=== PATIENT | female | born 1990 | race Caucasian/White ===

== ENCOUNTER 2017-08-02 00:29 | Emergency (ER) | payer SELFPAY ==
[2017-08-02 00:35] VITALS: BP 123/76
--- NOTE | 2017-08-02 01:06 | EDPHY ---
H & P Smoking Status: Current every day smoker Time Seen by Provider: 08/02/17 00:46 HPI/ROS: CHIEF COMPLAINT: Right otalgia HISTORY OF PRESENT ILLNESS: 26-year-old female history of recurrent otitis media complaining of right otalgia since this evening. She has been experiencing antecedent URI symptoms for the past few days. No otorrhea. No hearing loss. No barotrauma. No chest pain. No abdominal pain. No cough. REVIEW OF SYSTEMS: A ten point review of systems was performed and is negative with the exception of the items mentioned in the HPI PAST MEDICAL & SURGICAL HISTORY: recurrent otitis media SOCIAL HISTORY: Nonsmoker PHYSICAL EXAM (Prior to examination, patient consented to physical exam, hands were washed and my usual and customary physical exam procedures followed) 1) GENERAL: Well-developed, well-nourished, alert and oriented. Appears to be in no acute distress. 2) HEAD: Normocephalic, atraumatic 3) HEENT: Pupils equal, round, reactive to light bilaterally. Sclera anicteric. Nasopharynx, oropharynx, clear, no lesions. Left ear: Nonbulging non erythematous tympanic membrane with no signs. Right ear: Bulging erythematous tympanic membrane with no signs of perforation 4) NECK: Full range of motion, no meningeal signs. 5) LUNGS: Clear auscultation bilaterally, no wheezes, no rhonchi, no retractions. 6) HEART: Regular rate and rhythm, no murmur, no heave, no gallop. 7) ABDOMEN: No guarding, no rebound, no focal tenderness, 8) MUSCULOSKELETAL: No peripheral edema or discoloration. 9) BACK: No visual or palpable abnormality. 10) SKIN: No rash, no petechiae. 11) Psychiatric: Patient is oriented X 3, there is no agitation. DIFFERENTIAL DIAGNOSIS: in no particular order including but not limited to otitis media, otitis externa, mastoiditis (Mahendra,Louise Rebecca) Constitutional: Initial Vital Signs Temperature (C) 36.7 C 08/02/17 00:32 Heart Rate 88 08/02/17 00:32 Respiratory Rate 18 08/02/17 00:32 Blood Pressure 123/76 H 08/02/17 00:32 O2 Sat (%) 97 08/02/17 00:32 O2 Delivery Mode Room Air Allergies/Adverse Reactions: No Known Allergies Allergy (Unverified 08/02/17 00:32) Home Medications: Medication Instructions Recorded Amoxicillin Trihydrate 500 mg PO Q8 7 Days cap 08/02/17 [Amoxicillin 500mg cap] MDM/Departure - MDM Medications Given: Discontinued Medications Hydrocodone Bitart/Acetaminophen ([place] 5/325mg Prepack#6) 1 btl TAKEHOME EDNOW ONE Stop: 08/02/17 01:25 Last Admin: 08/02/17 01:30 Dose: 1 btl Amoxicillin (Amoxil Chewable 250 Mg Prepack#4) 1 btl TAKEHOME EDNOW ONE PRN Reason: Protocol Stop: 08/02/17 01:08 Last Admin: 08/02/17 01:19 Dose: 1 btl Lidocaine HCl (Lidocaine Hcl 4% Topical Solution) 1 ml TP EDNOW ONE Stop: 08/02/17 01:24 Last Admin: 08/02/17 01:26 Dose: 1 ml ED Course/Re-evaluation: Care of patient under supervision of secondary supervising physician Dr Mitchell . (Louise Mccray) PHYSICIAN DOCUMENTATION: The patient was evaluated and managed by the Physician Admissions Officer. My co- signature indicates that I have reviewed this chart and I agree with the findings and plan of care as documented. I am the secondary supervising physician. (Rama Mitchell) - Depart Disposition: Home, Routine, Self-Care Clinical Impression: Right otitis media Qualifiers: Otitis media type: suppurative Chronicity: acute Recurrence: recurrent Spontaneous tympanic membrane rupture: without spontaneous rupture Qualified Code(s): H66.004 - Acute suppurative otitis media without spontaneous rupture of ear drum, recurrent, right ear Condition: Good Instructions: Hydrocodone/Acetaminophen (By mouth), Amoxicillin (By mouth), Serous Otitis Media (ED) Additional Instructions: Return to the emergency department immediately for change in breathing habits, change in voice, change in swallowing habits, change in mental status, or any other symptoms that concern you. Prescriptions: Amoxicillin Trihydrate [Amoxicillin 500mg cap] 500 mg PO Q8 7 Days cap Referrals: Saul Corona MD [Medical Doctor] - 2-3 days, call for appt.
[2017-08-02] MEDS ORDERED: AMOXICILLIN 250 MG PREPACK#4 BTL TAKEHOME ONE (01:07)
[2017-08-02] MEDS ORDERED: LIDOCAINE HCL 4% TOPICAL SOLN 50ML ONE (01:22)
[2017-08-02] MEDS ORDERED: LIDOCAINE HCL 4% TOPICAL SOLN 50ML TP ONE (01:23)
[2017-08-02] MEDS ORDERED: HYDROCOD/APAP 5/325 PREPACK#6 BTL TAKEHOME ONE (01:24)
== END 2017-08-02 01:32 | disposition home or self-care (01) ==
DX: H66.004 Acute suppurative otitis media without spontaneous rupture of ear drum, recurrent, right ear (principal); F17.200 Nicotine dependence, unspecified, uncomplicated